=== PATIENT | female | born 1970 | race Native Hawaiian/Other Pacific Islander ===

== ENCOUNTER 2022-01-26 12:29 | Outpatient (CLI) | payer OTHER | END 2022-01-26 18:53 | disposition home or self-care (01) | LOC: RAD 12:29 | PROVIDERS: ATTEND Nurse Practitioner Family | DX: M06.4 Inflammatory polyarthropathy (principal); R06.02 Shortness of breath; Z79.899 Other long term (current) drug therapy ==

== ENCOUNTER 2022-02-08 13:29 | Outpatient (CLI) | payer OTHER | END 2022-02-08 21:08 | disposition home or self-care (01) | LOC: RESP 13:29 | PROVIDERS: ATTEND Nurse Practitioner Family | DX: M06.4 Inflammatory polyarthropathy (principal); R06.02 Shortness of breath; Z79.899 Other long term (current) drug therapy ==

== ENCOUNTER 2022-12-19 14:24 | Observation (INO) | payer OTHER ==
[~2022-12-19] VITALS: Ht 154.9 cm; Wt 96.2 kg
[2022-12-19 14:24] VITALS: BP 144/87; TEMP 98.3
[2022-12-19 14:37] VITALS: BP 144/87
[2022-12-19 14:50] LABS: PLATELET COUNT 326 K/uL (152-353)
[2022-12-19 14:58] LABS: POTASSIUM 4.3 mmol/L (3.6-5.2); SODIUM 135 mmol/L (136-145)
[2022-12-19 15:41] VITALS: BP 114/71
[2022-12-19 16:00] VITALS: BP 118/71
[2022-12-19 17:33] VITALS: BP 147/89; TEMP 97.6; Ht 154.9 cm; Wt 96.2 kg
[2022-12-19] MEDS ORDERED: OMEP40CA PO (18:19)
[2022-12-19] MEDS ORDERED: LAMICTAL200 MG PO (18:20)
[2022-12-19] MEDS ORDERED: LEVO0.0529 PO (18:21)
[2022-12-19] MEDS ORDERED: MONT10TA PO (18:22)
[2022-12-19] MEDS ORDERED: LIPITOR40 MG PO (18:22)
[2022-12-19] MEDS ORDERED: CELEXA40 MG PO (18:23)
[2022-12-19] MEDS ORDERED: GRALISE600 MG PO (18:24)
[2022-12-19] MEDS ORDERED: FOLI1TAB26 PO (18:24)
[2022-12-19] MEDS ORDERED: BACL10TA4 PO (18:25)
[2022-12-19] MEDS ORDERED: METH25IN13 SC (18:27)
[2022-12-19] MEDS ORDERED: JUST TEARS OPTH (18:36)
[2022-12-19 20:00] VITALS: BP 93/64; TEMP 97.6
[2022-12-20] VITALS: BP 110/68; TEMP 97.8
[2022-12-20 04:00] VITALS: BP 128/79; TEMP 98
[2022-12-20 05:37] LABS: PLATELET COUNT 282 K/uL (152-353)
[2022-12-20 08:00] VITALS: BP 139/84; TEMP 98.2
== END 2022-12-20 11:03 | disposition home or self-care (01) ==
LOC: ED 14:24 → MED/SURG 15:34
PROVIDERS: Family Medicine; ADMIT Nurse Practitioner Family; ATTEND Internal Medicine Endocrinology, Diabetes & Metabolism
DX: R07.89 Other chest pain (principal); E11.9 Type 2 diabetes mellitus without complications; E21.2 Other hyperparathyroidism; E03.8 Other specified hypothyroidism; E78.49 Other hyperlipidemia; M79.7 Fibromyalgia
CPT/HCPCS: 36415; 80053; 80061; 82948; 84484; 85027; 93005; 96372; 96374; 96375; 96376; 99221; 99284; G0378; J1650; J2270; J2405

== ENCOUNTER 2023-02-16 11:34 | Outpatient (CLI) | payer OTHER ==
[~2023-02-16 11:34] MED LIST: BACL10TA4 PO; CELEXA40 MG PO; FOLI1TAB26 PO; GRALISE600 MG PO; JUST TEARS OPTH; LAMICTAL200 MG PO; LEVO0.0529 PO; LIPITOR40 MG PO; METH25IN13 SC; MONT10TA PO; OMEP40CA PO
== END 2023-02-16 19:15 | disposition home or self-care (01) ==
LOC: RAD 11:34
PROVIDERS: ATTEND Student in an Organized Health Care Education/Training Program
DX: M47.816 Spondylosis without myelopathy or radiculopathy, lumbar region (principal); M48.062 Spinal stenosis, lumbar region with neurogenic claudication; M54.16 Radiculopathy, lumbar region; M54.12 Radiculopathy, cervical region; M47.812 Spondylosis without myelopathy or radiculopathy, cervical region; M54.14 Radiculopathy, thoracic region; M47.814 Spondylosis without myelopathy or radiculopathy, thoracic region